=== PATIENT | male | born 1950 | race Caucasian/White ===

== ENCOUNTER 2019-12-21 15:48 | Emergency (ER) | payer MEDICARE, SELFPAY ==
--- NOTE | ~2019-12-21 | XR_ITS ---
EXAMINATION: XR chest 2V EXAM DATE: 12/21/2019 16:24 INDICATION: Chest tightness today. TECHNIQUE: Frontal and lateral projections of the chest obtained and reviewed. Comparison is made to prior examination from 01/17/2006. FINDINGS: The lungs are clear. There are no pleural effusions. The cardiomediastinal silhouette is within normal limits. There is no pneumothorax suspected. The bones and soft tissues are unremarkab le. IMPRESSION: No acute cardiopulmonary findings. Reviewed, dictated and finalized at location A.
[2019-12-21 15:52] VITALS: BP 186/82; PULSE 57; RESP 16; TEMP 36.7
--- NOTE | 2019-12-21 15:58 | ECG_ITS ---
Measurements Intervals [place] Rate: 56 P: -14 NM: 148 QRS: 13 QRSD: 89 T: 42 QT: 456 QTc: 444 Interpretive Statements SINUS BRADYCARDIA VOLTAGE CRITERIA FOR LVH BASELINE ARTIFACT- I, II, III, AVL, AVF BORDERLINE ECG Electronically Signed On 12-21-2019 16:28:11 CDT by Jacques Lopez D.O.
[2019-12-21 16:06] LABS: Basophils Absolute Auto 0.1 K/mm3 (0.0-0.1); Basophils Percent Auto 0.6 % (0.2-1.2); Eosinophils Absolute Auto 0.2 K/mm3 (0-0.3); Eosinophils Percent Auto 2.2 % (0-4.4); Hematocrit 44.6 % (42.0-52.0); Hemoglobin 14.9 g/dL (14.0-18.0); Immature Granulocyte Absolute 0.02 K/mm3 (0.00-0.031); Immature Granulocyte Percent A 0.3 % (0-0.5); Lymphocytes Absolute Auto 2.69 K/mm3 (0.9-3.2); Lymphocytes Percent Auto 34.1 % (18.3-44.2); Mean Corpuscular HGB Conc 33.4 g/dl (32-36); Mean Corpuscular Hemoglobin 30.4 pg (26-34); Mean Platelet Volume 8.4 fl (7.4-10.4); Monocytes Absolute Auto 0.8 K/mm3 (0.1-0.6); Monocytes Percent Auto 10.3 % (2.6-8.5); Neutrophils Absolute Auto 4.2 K/mm3 (1.3-6.7); Neutrophils Percent Auto 52.5 % (45.5-73.1); Platelet Count Result 322 k/mm3 (150-375); Red Cell Distribution Width 13.3 % (11.5-14.5); White Blood Count 7.9 K/mm3 (4.5-10.0)
[2019-12-21 16:16] LABS: INR 0.9; Prothrombin Time 11.5 Seconds (11.1-14.7)
[2019-12-21 16:17] LABS: Partial Thromboplastin Time 23.7 SECONDS (22.3-36.8)
[2019-12-21 16:29] LABS: Blood Urea Nitrogen 20 mg/dL (9-20); Calcium 9.6 mg/dL (8.4-10.2); Carbon Dioxide 26 mmol/L (22-30); Chloride 102 mmol/L (98-107); Estimated CRCL calculation 64 ml/min; Estimated Glomerular Filt Rate > 60; Glucose 115 mg/dL (75-110); Potassium 3.5 mmol/L (3.4-5.0); Sodium 138 mmol/L (137-145)
--- NOTE | 2019-12-21 16:33 | ED.CHESTPAIN ---
HPI - Chest Pain General Chief Complaint: Chest Pain Stated Complaint: BODY NUMBNESS X 1/2 HOUR Time Seen by Provider: 12/21/19 16:08 Source: patient Mode of arrival: ambulatory Limitations: no limitations History of Present Illness HPI narrative: Patient is a 69-year-old male who presents to the emergency department with complaint of chest pain and extremity numbness. Patient reports onset while mowing his lawn with his riding lawnmower. Patient also noted numb sensation to both hands, both feet, and jaw. He denies any shortness of breath, nausea, vomiting, or diaphoresis. Patient states tightness in his chest lasted approximately 15 minutes before subsiding. He denies any known cardiac history. His only cardiac risk factor is a brother with coronary disease at roughly age 60. Patient additionally reports sensation of near syncope and has not eaten at all today. It sounds as though patient often only eats at dinnertime. Patient is currently asymptomatic. Of note, patient exercises regularly and states he either rides his bike 10 miles or walks 6 miles most days and did do a 10 mile bike ride today and did not have symptoms at the time of his bike ride. complaint: chest pain Timing of current episode: episodic Pain location: substernal Quality: tightness Treatment prior to arrival: none Related Data Allergies Allergy/AdvReac Type Severity Reaction Status Date / Time No Known Allergies Allergy Verified 12/21/19 15:56 Review of Systems Review of Systems: All systems reviewed & are unremarkable except as noted in HPI and below Cardiovascular: Cardiovascular: Reports chest pain and Denies diaphoresis Respiratory: Respiratory: Denies dyspnea Gastrointestinal: Gastrointestinal: Denies nausea and Denies vomiting PMFSH Past Medical History Medical History (Updated 12/21/19 @ 19:27 by Genevieve Ríos MD) Anxiety Surgical History Surgical History (Updated 12/21/19 @ 16:36 by Genevieve Ríos MD) History of knee surgery History of tonsillectomy Social History Social History (Updated 12/21/19 @ 16:37 by Genevieve Ríos MD) Smoking status: Former smoker Additional smoking assessment comments: Quit 30 years ago Exam Const: General: cooperative, no acute distress and alert Nutritional Appearance: well nourished Orientation/consciousness: patient oriented x3 Limitations: no limitations HENMT: Mouth: Yes lip normal and Yes moist mucous membranes Resp: Effort & Inspection: normal respiratory effort Auscultation: clear to auscultation bilaterally Cardio: Rate: regular rate Rhythm: regular rhythm GI: GI Palp: Yes Soft to palpation and No Tenderness to palpation present (GI) Auscultation: normal bowel sounds Skin: General skin exam: normal color Neuro: General: patient oriented x3 Cognition (Neuro): normal cognition Speech: normal speech Extrem: General: normal to inspection, full ROM and no clubbing, cyanosis or edema Psych: Mental Status: mental status grossly normal Affect: normal affect Attitude: cooperative Course Course Emergency Course: Patient with unremarkable EKG and troponin negative x2. Heart score 3. Patient is in excellent physical shape and has not had any exertional or anginal-like symptoms. Patient had diffuse extremity tingling during the episode and had not eaten all day. Patient currently asymptomatic and seems very low risk for this being cardiac. Advised importance of primary care follow-up for further evaluation and to return to the ED if he has any worsening or recurrent symptoms or problems. Vital Signs Vital signs: Vital Signs Temperature 98.0 F 12/21/19 15:52 Pulse Rate 57 L 12/21/19 15:52 Respiratory Rate 16 12/21/19 15:52 Blood Pressure 186/82 H 12/21/19 15:52 Temperature 98.0 F 12/21/19 15:52 Pulse Rate 56 L 12/21/19 18:20 Respiratory Rate 18 12/21/19 18:20 Blood Pressure 152/68 H 12/21/19 18:20 Pulse Oximetry 96 04
[2019-12-21 16:42] LABS: Troponin I < 0.012 ng/mL (0.000-0.034)
[2019-12-21 18:20] VITALS: BP 152/68; PULSE 56; RESP 18; O2SAT 96
[2019-12-21 18:59] LABS: Glucose Point of Care 94 (65-105)
[2019-12-21 19:21] LABS: Troponin I < 0.012 ng/mL (0.000-0.034)
[2019-12-21 19:37] VITALS: PULSE 78; RESP 18; O2SAT 99
== END 2019-12-21 19:39 | disposition home or self-care (01) ==
PROVIDERS: Emergency Provider Emergency Medicine; PCP Family Medicine
DX: R07.9 Chest pain, unspecified (principal); Z87.891 Personal history of nicotine dependence; R00.1 Bradycardia, unspecified; R94.31 Abnormal electrocardiogram [ECG] [EKG]
CPT/HCPCS: 36415; 71046; 80048; 84484; 85025; 85610; 85730; 93005; 99284

== ENCOUNTER 2021-11-18 06:45 | Emergency (ER) | payer MEDICARE, SELFPAY ==
[2021-11-18] VITALS (18 sets, daily range): BP systolic 142–153; BP diastolic 67–95; PULSE 47–66; RESP 10–19; TEMP 36.1; O2SAT 94–99
--- NOTE | ~2021-11-18 | XR_ITS ---
EXAMINATION: XR elbow LT min 3V DATE: 11/18/2021 08:00 INDICATION: Distal left humeral pain TECHNIQUE: Anteroposterior, two oblique and lateral views of the left elbow were obtained. COMPARISON: None. FINDINGS: Alignment is normal. No fracture or joint effusion. Osteoarthritis at the left elbow with moderate no nuniform joint space narrowing at the radiocapitellar articulation with mild subarticular cystic aleman ge at the capitellum. Mild nonuniform joint space narrowing at the ulnotrochlear articulation. Soft t issues are unremarkable. IMPRESSION: 1. 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 No joint effusion or acute osseous abnormality. Reviewed, dictated and finalized at location A. IMPRESSION: 1. 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 No joint effusion or acute osseou s abnormality.
--- NOTE | ~2021-11-18 | XR_ITS ---
EXAMINATION: XR chest 1V portable DATE: 11/18/2021 07:14 INDICATION: Chest pain TECHNIQUE: frontal view of the chest was obtained. COMPARISON: Chest radiograph date FINDINGS: The lungs remain clear with no focal airspace opacities, pulmonary edema, pleural effusion or pneumot horax. The cardiomediastinal silhouette is normal. IMPRESSION: 1. No acute cardiopulmonary disease. Reviewed, dictated and finalized at location A.
--- NOTE | 2021-11-18 06:49 | ECG_ITS ---
Measurements Intervals [place] Rate: 58 P: 43 AK: 143 QRS: -12 QRSD: 90 T: 47 QT: 406 QTc: 401 Interpretive Statements SINUS BRADYCARDIA COMPARED TO ECG 12/21/2019 15:57:49 NO SIGNIFICANT CHANGES Electronically Signed On 11-18-2021 14:22:07 CDT by Ken Terrazas M.D.
[2021-11-18 07:08] LABS: Basophils Percent Auto 0.5 % (0.2-1.2); Eosinophils Absolute Auto 0.2 K/mm3 (0-0.3); Eosinophils Percent Auto 4.4 % (0-4.4); Hematocrit 45.4 % (42.0-52.0); Hemoglobin 15.3 g/dL (14.0-18.0); Immature Granulocyte Absolute 0.01 K/mm3 (0.00-0.031); Immature Granulocyte Percent A 0.2 % (0-0.5); Lymphocytes Absolute Auto 1.59 K/mm3 (0.9-3.2); Mean Corpuscular HGB Conc 33.7 g/dl (32-36); Mean Corpuscular Hemoglobin 29.9 pg (26-34); Mean Corpuscular Volume 88.7 fl (80-100); Mean Platelet Volume 8.5 fl (7.4-10.4); Monocytes Absolute Auto 0.4 K/mm3 (0.1-0.6); Monocytes Percent Auto 9.3 % (2.6-8.5); Neutrophils Absolute Auto 2.1 K/mm3 (1.3-6.7); Neutrophils Percent Auto 48.6 % (45.5-73.1); Platelet Count Result 266 k/mm3 (150-375); Red Blood Count 5.12 M/mm3 (4.6-6.20); Red Cell Distribution Width 13.3 % (11.5-14.5); White Blood Count 4.3 K/mm3 (4.5-10.0)
[2021-11-18 07:20] LABS: Alanine Aminotransferase 33 U/L (4-50); Albumin Level 4.2 g/dL (3.5-5.1); Alkaline Phosphatase 69 U/L (38-126); Anion Gap 6 mmol/L (8-16); Aspartate Amino Transferase 41 U/L (17-59); Blood Urea Nitrogen 29 mg/dL (9-20); Calcium 8.6 mg/dL (8.4-10.2); Carbon Dioxide 29 mmol/L (22-30); Chloride 107 mmol/L (98-107); Estimated CRCL calculation 56 ml/min; Estimated Glomerular Filt Rate > 60; Glucose 117 mg/dL (65-110); Lipase 175 U/L (23-300); Potassium 3.9 mmol/L (3.4-5.0); Sodium 142 mmol/L (137-145)
[2021-11-18 07:25] LABS: INR 0.9
[2021-11-18 07:30] LABS: Troponin I < 0.012 ng/mL (0.000-0.034)
--- NOTE | 2021-11-18 07:59 | ED.CHESTPAIN ---
HPI - Chest Pain General Chief Complaint: Chest Pain Stated Complaint: chest pain Time Seen by Provider: 11/18/21 07:01 Source: patient and RN notes reviewed Mode of arrival: ambulatory Limitations: no limitations History of Present Illness HPI narrative: This is a 71 year old male right hand dominant who presents for evaluation of left arm pain. He reports having intermittent left arm/elbow pain for several months. He states last night his pain seemed constant, although he denies having pain now. His pain is worse with squeezing blood pressure cuff and movement. He denies numbness, tingling or weakness. HE took aspirin this morning for possible heart attack. He denies chest pain, but he states he has had intermittent chest tightness since his covid diagnosis 1 year ago. He denies diaphoresis, sob, fever, chills, nausea, vomiting. He states he walks 6 miles a day and his symptoms are not worse with exertion. He denies having any pain right now. Related Data Home Medications Medication Instructions Recorded Confirmed sertraline 25 mg tablet 25 mg PO DAILY 10/24/19 Allergies Allergy/AdvReac Type Severity Reaction Status Date / Time No Known Allergies Allergy Verified 03/13/20 12:40 Review of Systems Review of Systems: All systems reviewed & are unremarkable except as noted in HPI and below PMFSH Past Medical History Medical History Anxiety Surgical History Surgical History (System 03/13/20 @ 12:40 by Dayna Carbone) History of knee surgery History of tonsillectomy Social History Social History (System 03/13/20 @ 12:40 by Dayna Carbone) Smoking status: Current every day smoker Additional smoking assessment comments: Quit 30 years ago Alcohol intake: current Exam Const: General: no acute distress and alert Orientation/consciousness: patient oriented x3 Eyes: EOM: EOMs intact bilaterally Resp: Effort & Inspection: normal respiratory effort and no retractions Auscultation: clear to auscultation bilaterally Cardio: Rate: regular rate Rhythm: regular rhythm Heart sounds: no murmurs GI: GI Palp: Yes Soft to palpation, No Tenderness to palpation present (GI) and No Guarding due to palpation present (GI) Auscultation: normal bowel sounds Skin: General skin exam: normal color Rashes: no rashes Neuro: General: patient oriented x3, moves all extremities and CN's II-XI intact bilaterally Extrem: General: normal to inspection Psych: Mental Status: mental status grossly normal Affect: normal affect Course Reevaluation(s) Reevaluation #1: I reviewed with patient and that symptoms are not consistent with CAD. He has left elbow arthritis for possible cause of his left elbow pain. I discussed follow up with PCP as he is low risk for ACS. HEart score 2 Date: 11/18/21 Time: 11:11 Vital Signs Vital signs: Vital Signs Temperature 97 F L 11/18/21 06:51 Pulse Rate 62 11/18/21 06:51 Respiratory Rate 14 11/18/21 06:51 Blood Pressure 153/85 H 11/18/21 06:51 Pulse Oximetry 99 11/18/21 06:51 Temperature 97 F L 11/18/21 06:51 Pulse Rate 56 L 11/18/21 10:51 Respiratory Rate 15 11/18/21 10:51 Blood Pressure 142/67 H 11/18/21 08:49 Pulse Oximetry 99 11/18/21 10:51 MDM - Chest Pain Lab Data Attestation: I reviewed the patient's lab results. Result diagrams: 11/18/21 07:02 11/18/21 07:02 Labs: Lab Results 11/18/21 11/18/21 11/18/21 Range/Units 07:02 07:02 07:02 WBC 4.3 L (4.5-10.0) K/mm3 RBC 5.12 (4.6-6.20) M/mm3 Hgb 15.3 (14.0-18.0) g/dL Hct 45.4 (42.0-52.0) % MCV 88.7 (80-100) fl MCH 29.9 (26-34) pg MCHC 33.7 (32-36) g/dl RDW 13.3 (11.5-14.5) % Plt Count 266 (150-375) k/mm3 MPV 8.5 (7.4-10.4) fl Immature Gran % (Auto) 0.2 (0-0.5) % Neut % (Auto) 48.6 (45.5-73.1) % Lymph % (Auto) 3
[2021-11-18 10:39] LABS: Troponin I < 0.012 ng/mL (0.000-0.034)
== END 2021-11-18 11:26 | disposition home or self-care (01) ==
PROVIDERS: Emergency Medicine; Emergency Provider General Practice; PCP Nurse Practitioner Family
DX: M79.602 Pain in left arm (principal); M19.022 Primary osteoarthritis, left elbow; F41.9 Anxiety disorder, unspecified; Z87.891 Personal history of nicotine dependence
CPT/HCPCS: 36415; 71045; 73080; 80053; 83690; 84484; 85025; 85610; 93005; 99284

== ENCOUNTER 2022-04-09 07:36 | Outpatient (CLI) | payer MEDICARE, SELFPAY ==
--- NOTE | ~2022-04-09 | CT_ITS ---
EXAMINATION: CT brain wo con DATE: 04/09/2022 08:10 INDICATION: Intermittent head pressure, dizziness and disorientation for approximately one year TECHNIQUE: Computed tomography (CT) of the head was performed without intravenous contrast. The mA wa s adjusted according to patient size. Iterative reconstruction technique was employed. Exam dose: 60 5.33 mGy-cm total exam DLP. COMPARISON: None FINDINGS: No intracranial mass lesion or hemorrhage or cerebrovascular accident. No midline shift or mass effect. Bilateral carotid siphon and supraclinoid internal carotid artery calcifications. There is nonspecifi c diminished attenuation of the cerebral white matter, likely due to chronic small vessel ischemic ch anges. Mild cerebral and cerebellar volume loss, consistent with patient age. No orbital mass lesion. No subdural or epidural hematoma. No fracture or bone destruction of the cranial vault. The mastoid air cells are normally developed an d aerated. Paranasal sinuses are unremarkable. IMPRESSION: Cerebral atherosclerosis and chronic small vessel ischemic changes of the cerebral white matter Reviewed, dictated and finalized at Location A. Reviewed, dictated and finalized at location B.
== END 2022-04-09 07:37 | disposition home or self-care (01) ==
PROVIDERS: PCP Nurse Practitioner Family; Visit Provider Nurse Practitioner Family
DX: R42 Dizziness and giddiness (principal); I67.2 Cerebral atherosclerosis
CPT/HCPCS: 70450

== ENCOUNTER 2023-05-28 08:07 | Outpatient (CLI) | payer MEDICARE, SELFPAY ==
[2023-05-28 13:54] LABS: Basophils Absolute Auto 0.1 K/mm3 (0.0-0.1); Basophils Percent Auto 1.4 % (0.2-1.2); Eosinophils Absolute Auto 0.2 K/mm3 (0-0.3); Eosinophils Percent Auto 4.4 % (0-4.4); Hematocrit 44.8 % (42.0-52.0); Hemoglobin 14.4 g/dL (14.0-18.0); Immature Granulocyte Absolute 0.01 K/mm3 (0.00-0.031); Immature Granulocyte Percent A 0.2 % (0-0.5); Mean Corpuscular HGB Conc 32.1 g/dl (32-36); Mean Corpuscular Hemoglobin 30.5 pg (26-34); Mean Corpuscular Volume 94.9 fl (80-100); Mean Platelet Volume 8.9 fl (7.4-10.4); Monocytes Absolute Auto 0.4 K/mm3 (0.1-0.6); Neutrophils Absolute Auto 2.4 K/mm3 (1.3-6.7); Platelet Count Result 329 k/mm3 (150-375); Red Blood Count 4.72 M/mm3 (4.6-6.20); Red Cell Distribution Width 12.5 % (11.5-14.5); White Blood Count 4.3 K/mm3 (4.5-10.0)
[2023-05-28 13:59] LABS: Anion Gap 4 mmol/L (8-16); Blood Urea Nitrogen 22 mg/dL (9-20); Calcium 8.8 mg/dL (8.4-10.2); Carbon Dioxide 33 mmol/L (22-30); Chloride 101 mmol/L (98-107); Cholesterol 234 mg/dL (0-200); Estimated Glomerular Filt Rate > 60; Glucose 105 mg/dL (65-110); HDL Direct 75 mg/dL; Potassium 4.2 mmol/L (3.4-5.0); Sodium 138 mmol/L (137-145); Triglycerides 94 mg/dL (<150)
[2023-05-28 14:09] LABS: LDL Cholesterol Direct 123 mg/dL
[2023-05-28 19:19] LABS: Hemoglobin A1C 5.2 % (<5.7)
[2023-05-29 18:09] LABS: Prostate Specific Antigen 1.5 ng/mL (< OR = 4.0)
== END 2023-05-28 08:08 | disposition home or self-care (01) ==
PROVIDERS: PCP Emergency Medicine; Visit Provider Emergency Medicine
DX: R42 Dizziness and giddiness (principal); R73.02 Impaired glucose tolerance (oral); E78.5 Hyperlipidemia, unspecified; N40.0 Benign prostatic hyperplasia without lower urinary tract symptoms; Z12.5 Encounter for screening for malignant neoplasm of prostate
CPT/HCPCS: 36415; 80048; 80061; 83036; 84153; 85025; G0103

== ENCOUNTER 2023-06-16 13:43 | Emergency (ER) | payer MEDICARE, SELFPAY ==
--- NOTE | ~2023-06-16 | CT_ITS ---
Clinical Indication: Pain, dissection CT Scan of the Chest, Abdomen, and Pelvis with Contrast: Technique: Contiguous sections were acquired throughout the chest, abdomen, and pelvis after intraven ous administration of 100 cc of Omnipaque 350. Dose reduction technique was used on this scan by uti kalpeshing automated exposure control and iterative reconstruction technique. The dose-length product (DL P) was 708.97 mGy-cm. Findings: There is no evidence of any significant mediastinal, hilar or axillary lymphadenopathy. The mediastin al soft tissues appear normal. No pulmonary embolus seen. No aortic aneurysm or dissection. There is no evidence of pleural or pericardial effusion. The lungs are clear. No pulmonary nodules or infiltrates are noted. The liver, spleen, pancreas, gallbladder, adrenals and left kidney are within normal limits. There is a 2 mm distal right ureteral stone with mild right hydroureteronephrosis. There are atherosclerotic calcifications of the aorta. No abdominal aortic dissection. No lymphadenopathy. No bowel obstruction or bowel wall thickening. There is no evidence to suggest acute appendicitis. Urinary bladder is unremarkable. Prostate gland and seminal vesicles are unremarkable. Chronic compre ssion deformity of T8 noted. Impression: 2 mm distal right ureteral stone with mild right hydroureteronephrosis and right perihilar stranding. No aortic aneurysm or dissection. Reviewed, dictated and finalized at [facility]. Impression: 2 mm distal right ureteral stone with mild right hydroureteronephrosis and righ t perihilar stranding. No aortic aneurysm or dissection.
[2023-06-16 13:45] VITALS: BP 199/64; PULSE 52; RESP 20; TEMP 36.1; O2SAT 100
--- NOTE | 2023-06-16 14:01 | ECG_ITS ---
Measurements Intervals [place] Rate: 49 P: 12 [place]: 157 QRS: 39 QRSD: 86 T: 10 QT: 453 QTc: 411 Interpretive Statements SINUS BRADYCARDIA MODERATE VOLTAGE CRITERIA FOR LVH, CONSIDER NORMAL VARIANT [MEETS CRITERIA IN ONE OF: R(aVL), S(V1), R(V5), R(V5/V6)+S(V1)] COMPARED TO ECG 11/18/2021 06:52:08 NO SIGNIFICANT CHANGES Electronically Signed On 06-16-2023 16:35:58 CDT by Sophia Leon M.D.
[2023-06-16 14:02] LABS: Basophils Absolute Auto 0.1 K/mm3 (0.0-0.1); Basophils Percent Auto 0.8 % (0.2-1.2); Eosinophils Absolute Auto 0.1 K/mm3 (0-0.3); Eosinophils Percent Auto 1.3 % (0-4.4); Hematocrit 44.7 % (42.0-52.0); Hemoglobin 15.1 g/dL (14.0-18.0); Immature Granulocyte Absolute 0.02 K/mm3 (0.00-0.031); Immature Granulocyte Percent A 0.3 % (0-0.5); Lymphocytes Absolute Auto 1.65 K/mm3 (0.9-3.2); Lymphocytes Percent Auto 27.4 % (18.3-44.2); Mean Corpuscular HGB Conc 33.8 g/dl (32-36); Mean Corpuscular Hemoglobin 30.8 pg (26-34); Mean Corpuscular Volume 91.2 fl (80-100); Mean Platelet Volume 8.7 fl (7.4-10.4); Monocytes Absolute Auto 0.5 K/mm3 (0.1-0.6); Monocytes Percent Auto 8.6 % (2.6-8.5); Neutrophils Absolute Auto 3.7 K/mm3 (1.3-6.7); Neutrophils Percent Auto 61.6 % (45.5-73.1); Platelet Count Result 270 k/mm3 (150-375); Red Cell Distribution Width 12.7 % (11.5-14.5)
[2023-06-16 14:12] LABS: Alanine Aminotransferase 33 U/L (6-50); Albumin Level 4.4 g/dL (3.5-5.1); Alkaline Phosphatase 80 U/L (38-126); Anion Gap 10 mmol/L (8-16); Aspartate Amino Transferase 40 U/L (17-59); Bilirubin,Total 1.1 mg/dL (0.2-1.3); Blood Urea Nitrogen 25 mg/dL (9-20); Calcium 9.5 mg/dL (8.4-10.2); Carbon Dioxide 23 mmol/L (22-30); Chloride 104 mmol/L (98-107); Estimated CRCL calculation 54 ml/min; Estimated Glomerular Filt Rate > 60; Glucose 110 mg/dL (65-110); Sodium 137 mmol/L (137-145)
--- NOTE | 2023-06-16 14:41 | ED.GENADULT ---
HPI - General Adult General Chief complaint: Urogenital-Male Stated complaint: right flank pain Time Seen by Provider: 06/16/23 14:28 Source: patient Mode of arrival: ambulatory Limitations: no limitations History of Present Illness HPI narrative: This is a 73-year-old male who presents to the ED presents to the ED with chief complaint of right flank pain beginning an hour prior to arrival. Patient reports associated nausea and 1 episode of vomiting with multiple episodes of dry heaving. Reports the pain is in the right lower quadrant and radiates around to the back. He does report at times it radiates straight through towards the back. Denies any problems with bowel movements. He states urination has been difficulty lately and he has had some burning. Denies fevers, chills, syncope, chest pain, shortness of breath or cough. Related Data Home Medications Medication Instructions Recorded Confirmed finasteride 5 mg tablet 5 mg PO DAILY 06/06/22 05/27/23 omeprazole 20 mg capsule,delayed 20 mg PO DAILY 06/06/22 05/27/23 release Allergies Allergy/AdvReac Type Severity Reaction Status Date / Time No Known Allergies Allergy Verified 05/27/23 08:50 Review of Systems Review of Systems: All systems as dictated in [facility] Past Medical History Medical History (Updated 06/16/23 @ 16:14 by Douglas Lovett PA-C) Anxiety Surgical History Surgical History History of knee surgery History of tonsillectomy Family History Family History Mother Breast cancer Social History Social History (Updated 05/27/23 @ 08:51 by Radha Kothari MA) Smoking status: Former smoker Additional smoking assessment comments: Quit 30 years ago Alcohol intake: current Substance use: never Lack of Transportation: No Lack of Food: Never True Current Housing: I Have Housing Concerned About Future Housing: No Difficulty Paying Gas/Electric Bills: No Difficulty Paying for Meds: No Currently Unemployed: No Education: High School Diploma/GED Difficulty w/ Childcare or Family Care: No Living arrangements: with family Occupation/Education: retired Exam Narrative: GENERAL: Well-appearing, well-nourished, and in no acute distress. HEAD: Normocephalic, atraumatic. EYES: PERRLA and EOMI. ENT: Nares clear, no rhinorrhea or epistaxis. Mucous membranes moist. Oropharynx without tonsillar hypertrophy exudate or other lesions. NECK: Supple. No adenopathy or masses. CHEST: No respiratory distress. Clear to auscultation. No wheezes rales or rhonchi HEART: Regular rate and rhythm. No murmur heard. Normal peripheral pulses. ABDOMEN: Soft, nontender, nondistended, normal active bowel sounds. MSK: Normal range of motion. No edema. SKIN: Warm, dry, no rash. NEURO: Alert and oriented x3. No focal deficits. PSYCH: Normal mood and affect. Course Course Emergency Course: Reevaluation 1612: Patient is feeling improved and would like to go home. Vital Signs Vital signs: Vital Signs Temperature 97 F L 06/16/23 13:45 Pulse Rate 52 L 06/16/23 13:45 Respiratory Rate 20 06/16/23 13:45 Blood Pressure 199/64 H 06/16/23 13:45 Pulse Oximetry 100 06/16/23 13:45 Oxygen Delivery Room Air 06/16/23 13:45 Temperature 97 F L 06/16/23 13:45 Pulse Rate 49 L 06/16/23 16:40 Respiratory Rate 16 06/16/23 16:40 Blood Pressure 169/69 H 06/16/23 16:40 Pulse Oximetry 96 06/16/23 16:40 Oxygen Delivery Room Air 06/16/23 13:45 Medical Decision Making MDM Narrative Medical decision making narrative: This is a 73-year-old male who presents to the ED in renal colic. Vitals show initial elevated blood pressure but otherwise were unremarkable. Exam patient clearly in distress and also reveals right flank tenderness present. Initial lab work is largely unremarkable. BUN slightl
[2023-06-16 14:42] VITALS: BP 212/70
[2023-06-16] MEDS: ONDANSETRON INJ 4 MG/2 ML VIAL IV PUSH (14:55)
[2023-06-16] MEDS: MORPHINE SULFATE (*CRX) 4 MG/ML INJ IV PUSH (14:55)
[2023-06-16 15:16] LABS: Add Urine Microscopic? YES; Amorphous Sediment Urine Present; Appearance Urine Cloudy (Clear); Bacteria Urine None Seen /hpf; Bilirubin Urine Negative (Negative); Blood Urine Negative (Negative); Color Urine Yellow (Yellow); Glucose Urine UA Negative (Negative); Ketones Urine Negative (Negative); Leukocyte Esterase Ur Negative LEU/UL (Negative); Need Manual Microscopic Reviewed; Nitrate Urine Negative (Negative); Non Pathogenic Casts 0-2; Protein Urine Negative (Negative); Specific Grav Ur 1.015 (1.001-1.035); Squamous Epithelial Cell Urine None seen /hpf (Few); Urobilinogen Urine 0.2 mg/dL (<2.0); WBC Urine 0-5 /hpf; pH Urine >=9.0 (5.0-9.0)
--- NOTE | 2023-06-16 16:08 | PC.NURSE ---
after confirmed report of kidney stone on CT, I gave pt a urine strainer and educated pt to start utilizing this.
[2023-06-16 16:40] VITALS: BP 169/69; PULSE 49; RESP 16; O2SAT 96
== END 2023-06-16 16:41 | disposition home or self-care (01) ==
PROVIDERS: Emergency Medicine; Emergency Provider Physician Assistant; PCP Emergency Medicine
DX: N20.1 Calculus of ureter (principal); F41.9 Anxiety disorder, unspecified
CPT/HCPCS: 36415; 71275; 74174; 80053; 81001; 85025; 93005; 96361; 96374; 99284; J2270; J2405; Q9967

== ENCOUNTER 2023-10-27 13:43 | Outpatient (CLI) | payer MEDICARE, SELFPAY ==
--- NOTE | ~2023-10-27 | XR_ITS ---
EXAMINATION: XR abdomen/kub 1V DATE: 10/27/2023 13:58 INDICATION: Kidney stones. TECHNIQUE: A supine view of the abdomen on 2 radiographs was obtained. COMPARISON: CT abdomen and pelvis 06/16/2023 FINDINGS: There are no dilated loops of bowel. There are phleboliths in the pelvis. The kidneys are o bscured by bowel. IMPRESSION: 1. No visible urolithiasis. Reviewed, dictated and finalized at location E. E PAIRER IMPRESSION: 1. No visible urolithiasis.
== END 2023-10-27 13:44 ==
PROVIDERS: PCP Urology; Visit Provider Urology
DX: Z87.442 Personal history of urinary calculi (principal)
CPT/HCPCS: 74018

== ENCOUNTER 2024-01-11 07:54 | Outpatient (CLI) | payer MEDICARE, SELFPAY ==
[2024-01-11 19:35] LABS: Basophils Absolute Auto 0.1 K/mm3 (0.0-0.1); Basophils Percent Auto 0.7 % (0.2-1.2); Eosinophils Absolute Auto 0.2 K/mm3 (0-0.3); Eosinophils Percent Auto 1.7 % (0-4.4); Hemoglobin 13.4 g/dL (14.0-18.0); Immature Granulocyte Absolute 0.04 K/mm3 (0.00-0.031); Immature Granulocyte Percent A 0.4 % (0-0.5); Lymphocytes Absolute Auto 1.32 K/mm3 (0.9-3.2); Lymphocytes Percent Auto 14.5 % (18.3-44.2); Mean Corpuscular HGB Conc 31.9 g/dl (32-36); Mean Corpuscular Hemoglobin 29.6 pg (26-34); Mean Corpuscular Volume 92.7 fl (80-100); Mean Platelet Volume 8.6 fl (7.4-10.4); Monocytes Absolute Auto 0.9 K/mm3 (0.1-0.6); Monocytes Percent Auto 9.4 % (2.6-8.5); Neutrophils Absolute Auto 6.7 K/mm3 (1.3-6.7); Neutrophils Percent Auto 73.3 % (45.5-73.1); Platelet Count Result 593 k/mm3 (150-375); Red Blood Count 4.53 M/mm3 (4.6-6.20); Red Cell Distribution Width 13.1 % (11.5-14.5); White Blood Count 9.1 K/mm3 (4.5-10.0)
[2024-01-11 19:57] LABS: Alanine Aminotransferase 120 U/L (6-50); Alkaline Phosphatase 112 U/L (38-126); Anion Gap 7 mmol/L (4-12); Aspartate Amino Transferase 83 U/L (17-59); Bilirubin,Total 0.5 mg/dL (0.2-1.3); Blood Urea Nitrogen 28 mg/dL (9-20); Calcium 9.9 mg/dL (8.4-10.2); Carbon Dioxide 31 mmol/L (22-30); Chloride 105 mmol/L (98-107); Cholesterol 169 mg/dL (0-200); Estimated Glomerular Filt Rate > 60; Glucose 102 mg/dL (65-110); HDL Direct 47 mg/dL; Potassium 4.4 mmol/L (3.4-5.0); Sodium 143 mmol/L (137-145); Triglycerides 86 mg/dL (<150); Uric Acid 6.1 mg/dL (3.5-8.5)
[2024-01-11 19:59] LABS: LDL Cholesterol Direct 90 mg/dL
[2024-01-11 20:00] LABS: Rheumatoid Factor < 12.0 IU/ML (<12)
[2024-01-11 20:10] LABS: CRP 20.2 mg/dL (<1.0); Erythrocyte Sedimentation Rate 46 mm/hr (0-20)
[2024-01-11 20:15] LABS: Prostate Specific Antigen 1.8 ng/mL (< OR = 4.0)
== END 2024-01-11 07:55 | disposition home or self-care (01) ==
PROVIDERS: PCP Urology; Visit Provider Emergency Medicine
DX: R53.83 Other fatigue (principal); M25.50 Pain in unspecified joint; E78.5 Hyperlipidemia, unspecified; F41.9 Anxiety disorder, unspecified; Z12.5 Encounter for screening for malignant neoplasm of prostate; M10.9 Gout, unspecified
CPT/HCPCS: 36415; 80053; 80061; 84153; 84443; 84550; 85025; 85652; 86038; 86140; 86430; G0103

== ENCOUNTER 2024-01-14 14:04 | Outpatient (CLI) | payer MEDICARE, SELFPAY ==
--- NOTE | ~2024-01-14 | XR_ITS ---
EXAMINATION: XR knee LT min 4V, XR knee RT min 4V DATE: 01/14/2024 14:36 INDICATION: Bilateral primary osteoarthritis of the knees TECHNIQUE: 1. Weight bearing anteroposterior and Evans, sunrise, and flexed lateral views of the right knee were obtained. 2. Weight bearing anteroposterior and Evans, sunrise, and flexed lateral views of the left knee w ere obtained. COMPARISON: None. FINDINGS: Right knee: Alignment is normal. No fracture. There is severe joint space narrowing the lateral compartment with the knee in flexion and moderate to severe in the lateral compartment with the knee in extension. Mi ld joint space narrowing in the medial compartment and small marginal osteophytes in the patellofemor al compartment. Small right knee joint effusion. Soft tissues are otherwise unremarkable. Left knee: Alignment is normal. No fracture. Severe joint space narrowing the medial compartment of the left kne e. Tiny marginal ossified the lateral and patellofemoral compartments. Small left knee joint effusion . Soft tissues are otherwise unremarkable. IMPRESSION: 1. Tricompartmental osteoarthritis at both knees, severe in the medial compartment left knee and in t he lateral compartment of the right knee and mild in the remaining compartments. Reviewed, dictated and finalized at location A. IMPRESSION: 1. Tricompartmental osteoarthritis at both knees, severe in the medial compartm ent left knee and in the lateral compartment of the right knee and mild in the remaining compartments.
== END 2024-01-14 14:05 ==
LOC: GOSHIMG 14:05
PROVIDERS: PCP Urology; Visit Provider Emergency Medicine
DX: M17.0 Bilateral primary osteoarthritis of knee (principal)
CPT/HCPCS: 73564

== ENCOUNTER 2024-04-14 01:56 | Day surgery (SDC) | payer MEDICARE, SELFPAY ==
[2024-03-29 14:14] VITALS: BMI 25.1
[2024-04-14 09:31] VITALS: BP 173/78; PULSE 65; RESP 16; TEMP 36; O2SAT 99; BMI 25.6
[2024-04-14] MEDS: LACTATED RINGERS 1,000 ML 150 ML IV CONT (09:46)
--- NOTE | 2024-04-14 09:53 | WPDANESEPPF ---
Anes - Initial Pre Proc Eval Procedure: Operation Date: 04/14/24 11:00 Proposed Procedures p Screening Colonoscopy - Jos Louis MD Date/Time: 04/14/24 09:53 Surgeon: Jos Louis MD Pre Op Diagnosis: Neoplasm screening Patient Data Age: 74 Gender: M Height: 1.73 m Weight: 76.5 kg Last Vital Signs Temp 96.8 F L 04/14/24 09:31 Pulse 65 04/14/24 09:31 Resp 16 04/14/24 09:31 BP 173/78 H 04/14/24 09:31 Pulse Ox 99 04/14/24 09:31 O2 Del Method Room Air 04/14/24 09:31 Allergies Allergy/AdvReac Type Severity Reaction Status Date / Time No Known Allergies Allergy Verified 04/14/24 09:29 Home Medications Medication Instructions Recorded Confirmed Type finasteride 5 mg tablet 5 mg PO DAILY #90 tabs 09/29/23 04/14/24 Rx sertraline 25 mg tablet See Rx Instructions .Route 11/04/23 04/14/24 Rx .COMPLEX #90 tabs tamsulosin 0.4 mg capsule (Flomax) 0.4 mg PO DAILY #30 caps 01/20/24 04/14/24 Rx celecoxib 200 mg capsule 200 mg PO DAILY #30 caps 03/07/24 04/14/24 Rx hydrochlorothiazide 12.5 mg tablet 12.5 mg PO DAILY #90 tabs 04/04/24 04/14/24 Rx omeprazole 20 mg capsule,delayed 20 mg PO DAILY #90 caps 04/05/24 04/14/24 Rx release Patient hx anesthesia problems: none Family hx anesthesia problems: none Results Review: All pre-operative results and documents have been reviewed as part of the pre-operative evaluation. [facility] Past Medical History Medical History Anxiety Surgical History Surgical History History of knee surgery History of tonsillectomy Family History Family History Mother Breast cancer Social History Social History Years smoked: 10 Smoking status: Former smoker Tobacco type: cigarettes Additional smoking assessment comments: Quit 30 years ago Alcohol intake: current Alcohol use details: 5 Substance use: never Lack of Transportation: No Lack of Food: Never True Current Housing: I Have Housing Concerned About Future Housing: No Difficulty Paying Gas/Electric Bills: No Difficulty Paying for Meds: No Currently Unemployed: No Education: High School Diploma/GED Difficulty w/ Childcare or Family Care: No Living arrangements: with family Occupation/Education: retired Spiritual care concerns: No Anes - Eval Final PreProcedure Day of Procedure 04/14/24 09:53 Patient weight: normal Heart: regular rate and rhythm Lungs: clear to auscultation Airway: Mallampati scale class II Neurological: alert and oriented Last oral intake: >/= 8 hours ASA classification: II Emergent: no Anesthetic plan: proceed Anesthesia type and monitoring: general GIVS and standard monitoring Results Review: All pre-operative results and documents have been reviewed as part of the pre-operative evaluation. Informed Consent: The patient's anesthetic plan and its attendant risks and benefits were discussed with the patient/family/POA. Questions were solicited and answers provided to the satisfaction of the patient/family/POA.
--- NOTE | 2024-04-14 10:09 | PM.HPGS ---
History of Present Illness History of Present Illness Consent: Risks, benefits, and alternatives have been discussed and questions answered. Patient agrees to proceed with procedure. Chief complaint: Neoplasm screening Narrative: Mayco Churchill is a 74 year old male here for screening colonoscopy, last one 14 years ago Review of Systems Review of Systems: All systems reviewed & are unremarkable except as noted in HPI and below PMFSH Past Medical History Medical History Anxiety Surgical History Surgical History History of knee surgery History of tonsillectomy Family History Family History Mother Breast cancer Social History Social History Years smoked: 10 Smoking status: Former smoker Tobacco type: cigarettes Additional smoking assessment comments: Quit 30 years ago Alcohol intake: current Alcohol use details: 5 Substance use: never Lack of Transportation: No Lack of Food: Never True Current Housing: I Have Housing Concerned About Future Housing: No Difficulty Paying Gas/Electric Bills: No Difficulty Paying for Meds: No Currently Unemployed: No Education: High School Diploma/GED Difficulty w/ Childcare or Family Care: No Living arrangements: with family Occupation/Education: retired Spiritual care concerns: No Meds Home Medications and Allergies Home Medications Medication Instructions Recorded Confirmed Type finasteride 5 mg tablet 5 mg PO DAILY #90 tabs 09/29/23 04/14/24 Rx sertraline 25 mg tablet See Rx Instructions .Route 11/04/23 04/14/24 Rx .COMPLEX #90 tabs tamsulosin 0.4 mg capsule (Flomax) 0.4 mg PO DAILY #30 caps 01/20/24 04/14/24 Rx celecoxib 200 mg capsule 200 mg PO DAILY #30 caps 03/07/24 04/14/24 Rx hydrochlorothiazide 12.5 mg tablet 12.5 mg PO DAILY #90 tabs 04/04/24 04/14/24 Rx omeprazole 20 mg capsule,delayed 20 mg PO DAILY #90 caps 04/05/24 04/14/24 Rx release Allergies Allergy/AdvReac Type Severity Reaction Status Date / Time No Known Allergies Allergy Verified 04/14/24 09:29 Vital Signs Vital Signs - 24 hr 04/14/24 09:31 Temperature 96.8 F L Pulse Rate 65 Respiratory Rate 16 Blood Pressure 173/78 H Pulse Oximetry 99 Oxygen Delivery Room Air Exam Const: General: comfortable and no acute distress HENMT: Face/Nose/Sinus: Normal nares present Eyes: General: appearance normal, both eyes and all related structures Neck: Neck: no JVD Resp: Auscultation: clear to auscultation bilaterally Cardio: Rate: regular rate Rhythm: regular rhythm GI: Inspection: non-distended GI Palp: Yes Soft to palpation Skin: General skin exam: normal color Neuro: General: gait normal Speech: normal speech Extrem: General: normal to inspection Psych: Mental Status: mental status grossly normal Assessment and Plan Assessment and plan (1) Screening for colon cancer: Code(s): Z12.11 - Encounter for screening for malignant neoplasm of colon Status: Acute Assessment and Plan: colonoscopy
[2024-04-14 10:22] VITALS: BP 101/62; PULSE 62; RESP 14; O2SAT 95
[2024-04-14 10:32] VITALS: BP 123/79; PULSE 55; RESP 20; O2SAT 97
[2024-04-14 10:42] VITALS: BP 131/82; PULSE 55; RESP 17; O2SAT 100
== END 2024-04-14 11:00 | disposition home or self-care (01) ==
PROVIDERS: PCP Emergency Medicine; Visit Provider Internal Medicine Gastroenterology
PROC: 0DJD8ZZ Inspection of Lower Intestinal Tract, Via Natural or Artificial Opening Endoscopic (ICD-10-PCS; CPT 45378; principal; 2024-04-14 11:00)
DX: Z12.11 Encounter for screening for malignant neoplasm of colon (principal); D12.0 Benign neoplasm of cecum; K64.8 Other hemorrhoids; F41.9 Anxiety disorder, unspecified; Z98.890 Other specified postprocedural states; Z87.891 Personal history of nicotine dependence; Z80.3 Family history of malignant neoplasm of breast
CPT/HCPCS: 45385; 88305; J7120

== ENCOUNTER 2024-06-01 09:04 | Outpatient (CLI) | payer MEDICARE, SELFPAY ==
[2024-06-01 14:15] LABS: Alanine Aminotransferase 32 U/L (6-50); Albumin Level 4.6 g/dL (3.5-5.1); Alkaline Phosphatase 61 U/L (38-126); Anion Gap 9 mmol/L (4-12); Aspartate Amino Transferase 68 U/L (17-59); Bilirubin,Total 1.2 mg/dL (0.2-1.3); Blood Urea Nitrogen 25 mg/dL (9-20); Calcium 9.3 mg/dL (8.4-10.2); Carbon Dioxide 31 mmol/L (22-30); Chloride 99 mmol/L (98-107); Estimated Glomerular Filt Rate > 60; Glucose 98 mg/dL (65-110); Sodium 139 mmol/L (137-145)
[2024-06-01 15:12] LABS: Hepatitis B Surface Antigen Negative (Negative)
[2024-06-01 15:18] LABS: HAV RESULT Negative (Negative); Hepatitis B Core IgM Result Negative (Negative)
[2024-06-01 15:29] LABS: Hepatitis C Virus Antibody Negative (Negative)
== END 2024-06-01 09:05 | disposition home or self-care (01) ==
LOC: ANHGOSHLAB 09:05
PROVIDERS: PCP Emergency Medicine; Visit Provider Nurse Practitioner Family
DX: R74.8 Abnormal levels of other serum enzymes (principal); R53.83 Other fatigue
CPT/HCPCS: 36415; 80053; 80074

== ENCOUNTER 2024-08-29 08:23 | Outpatient (CLI) | payer MEDICARE, SELFPAY ==
[2024-08-29 12:46] LABS: Alanine Aminotransferase 37 U/L (6-50); Albumin Level 4.4 g/dL (3.5-5.1); Alkaline Phosphatase 66 U/L (38-126); Anion Gap 4 mmol/L (4-12); Aspartate Amino Transferase 63 U/L (17-59); Blood Urea Nitrogen 29 mg/dL (9-20); Calcium 9.3 mg/dL (8.4-10.2); Carbon Dioxide 32 mmol/L (22-30); Chloride 105 mmol/L (98-107); Cholesterol 253 mg/dL (0-200); Estimated Glomerular Filt Rate > 60; Glucose 89 mg/dL (65-110); HDL Direct 72 mg/dL; Potassium 3.8 mmol/L (3.4-5.0); Sodium 141 mmol/L (137-145); Triglycerides 81 mg/dL (<150)
[2024-08-29 13:01] LABS: LDL Cholesterol Direct 134 mg/dL
--- OUTSIDE RECORDS SUMMARY | 2024-09-05 16:15 | XMS_ITS | Encounter Summary ---
Author Organization [facility] Address [address] [place] [address]. [place] [id number] [place] [id number] Care Team Providers Care Landscape Photographer Name Role Phone Unavailable Primary Care Provider Unavailabl e Reason for Visit * Reason Onset Date Comments Schedule Surgery 09/28/2023 cancel Encounter Details Date Type Department Care Team (Late st Contact Info) Description 09/28/2023 Telephone [facility] [address] [place] [address] Cris Glaser, RN Schedule Surgery (cancel) Social History Tobacco Use Types Packs/Day Years Used Date Smoking Tobacco: Never Alcohol Use Standard Drinks/Week Comments Yes 0 (1 standard drink = 0.6 oz pur e alcohol) very little Sex and Gender Information Value Date Recorded Sex Assigned at Not on file 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
--- OUTSIDE RECORDS SUMMARY | 2024-09-05 16:15 | XMS_ITS | Clinical Summary ---
Author Organization [facility] Address [address] [place] [address]. 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 [employer] Gender Identity Not on file Sexual Orientation Not on file Last Filed Vital Signs Vital Sign Reading Time Taken Comments Blood Pressure - - Pulse - - Temperature - - Respiratory Rate - - Oxygen Saturation - - Inhaled Oxygen Concentration - - Weight 74.8 kg (165 lb) 09/18/2023 3:37 PM DIRECTOR [employer] Height 170.2 cm (5' 7 ) 09/18/2023 3:37 PM [employer]OR [employer] Body Mass Index 25.84 09/18/2023 3:37 PM DIRECTOR [employer] Plan of Treatment Health Maintenance Due Date Last Done Comments Colorectal Cancer Screening Colonoscopy (10 Years) 1950 Hepatitis C 01/02/1968 DTaP, Tdap and Td Vaccines ( 1 - Tdap) 1969 Annual Medicare Wellness Visit 2015 Pneumococcal Vaccine: 65+ Years (2 of 2 - PCV) 06/17/2019 06/17/2018 COVID-19 Vaccine ( - 2023-2 5 season) 2024 Influenza Adult (#1) 2024 06/17/2018 RSV Immunization or 60+ Years (1 - 1-dose 75+ series) 2025 Zoster Vaccines Completed 08/20/2020, 06/20/2020, 07/14/2013 Meningococcal Vaccine Aged Out No sukh renzo eligible based on patient's age to complete this topic RSV Immunizations Under 20 Months Aged Out No longer eligible b ased on patient's age to complete this topic Insurance [facility]
--- OUTSIDE RECORDS SUMMARY | 2024-09-05 16:16 | XMS_ITS | Continuity of Care Document ---
Author Organization [facility] Address [address] [place] [address] [address] [place] [address] Phone Care Team Providers Care Propellant Assembler Name Role Phone Morelia Vail Unavailable Unavailable Advance Directives Directive Yes / No Effective Date File Name No Information Encounters Encounter Description Practice Location Reason(s) For Visit Diagnoses Date Provider Providers Copied on Encounter [facility], [id number] [place] [address] [address], [place], [place], [id number], [place] tel:[phone] [facility] [place] No Information [address]. [address] [facility] , [address], [place], [address], [place]. tel:[phone] Family History Family Member Type Diagnosis Age At Onset No Information Payers Payer name Insurance type Covered republican ID Authortrevora carlitos(s) [facility] CI [id number] Social History Type Description Quantity Date Captured Comments Sex Male Smoking Status No Information Chief Complaint And Reason For Visit No Information Reason For Referral Reason For Referral No Information History Of Present Illness Encounter Date Complaint History Of Prese nt Illness No Information Functional Status Date Functional Assessmen t No Information Instructions Date Instruction Additional Infor mation No Information Assessments Type Assessment Date No Information Patient Care Teams Name Effective Dates (start - stop) Status Members No Information
== END 2024-08-29 08:24 | disposition home or self-care (01) ==
LOC: ANHGOSHLAB 08:23
PROVIDERS: PCP Nurse Practitioner Family; Visit Provider Nurse Practitioner Family
DX: F41.9 Anxiety disorder, unspecified (principal); E78.5 Hyperlipidemia, unspecified; R73.02 Impaired glucose tolerance (oral)
CPT/HCPCS: 36415; 80053; 80061; 84443